=== PATIENT | male | born 1985 | race Two or more races ===

== ENCOUNTER 2017-09-17 10:01 | Emergency (ER) | payer SELFPAY ==
[2017-09-17 11:20] LABS: INFLUENZA A PATIENT NEGATIVE (NEGATIVE)
[2017-09-17 11:22] LABS: INFLUENZA B PATIENT POSITIVE (NEGATIVE); OBC FLU VALID
[2017-09-17] MEDS: IBUPROFEN 800 MG TABLET. PO (11:30)
[2017-09-17] MEDS: ONDANSETRON ODT 4 MG TAB.RAPDIS. PO (11:31)
[2017-09-17] MEDS: ACETAMINOPHEN 500 MG TABLET PO (11:31)
== END 2017-09-17 12:37 | disposition home or self-care (01) ==
LOC: ER 10:01
DX: J10.1 Influenza due to other identified influenza virus with other respiratory manifestations (principal)
CPT/HCPCS: 71045; 87804; 87804-59; 99285-25; Q0162